=== PATIENT | male | born 1970 | race Caucasian/White ===

== ENCOUNTER 2025-01-10 22:20 | Emergency (ER) | payer BC, OTHER ==
[~2025-01-10] VITALS: Ht 177.8 cm; Wt 91.2 kg
[~2025-01-10 22:20] MED LIST: ALEVE220 M1 PO; METOPROLOL SUCC50 MG PO; ZEGERID 20 MG1 EACH PO; ZYRTEC10 MG PO
[2025-01-10 23:01] LABS: BASOPHILS # (AUTO) 0.1 (0.0-0.1); EOSINOPHILS # (AUTO) 0.2 (0.0-0.4); EOSINOPHILS % 1.9 % (0.0-6.0); HEMATOCRIT 46.6 % (38.2-49.6); HEMOGLOBIN 14.8 g/dL (14.0-18.0); LYMPHOCYTES # (AUTO) 1.7 (1.0-3.2); LYMPHOCYTES % 18.7 % (18.0-39.1); MEAN CORPUSCULAR HEMOGLOBIN 26.7 pg (28-32); MEAN CORPUSCULAR HGB CONC 31.8 g/dL (31-35); MONOCYTES # (AUTO) 0.9 (0.2-0.8); MONOCYTES % 10.3 % (4.4-11.3); NEUTROPHILS % 67.6 % (38.7-80.0); PLATELET COUNT 312 x10e3/uL (140-360); RED BLOOD COUNT 5.55 x10e6/uL (4.3-5.7); RED CELL DISTRIBUTION WIDTH 13.6 % (11.7-14.4); WHITE BLOOD COUNT 8.87 x10e3/uL (4.8-10.8)
[2025-01-10 23:15] VITALS: TEMP 98.6
[2025-01-10 23:24] LABS: ALBUMIN 4.1 g/dL (3.5-5.0); ALBUMIN/GLOBULIN RATIO 1.3 (0.8-2.0); ANION GAP 17.7 mmol/L (8-16); BILIRUBIN,TOTAL 0.6 mg/dL (0.2-1.2); CALCIUM 9.7 mg/dL (8.4-10.2); CREATININE, SERUM 1.7 mg/dL (0.72-1.25); POTASSIUM 4.7 mmol/L (3.5-5.1); TOTAL PROTEIN 7.2 g/dL (6.5-8.1)
[2025-01-10 23:30] LABS: TROPONIN I 0.022 ng/mL (0-0.300)
[2025-01-10 23:33] LABS: INFLUENZA A AG NEGATIVE (NEGATIVE); INFLUENZA B AG NEGATIVE (NEGATIVE)
[2025-01-10 23:34] LABS: CORONAVIRUS COVID-19 AG NEGATIVE (NEGATIVE)
[2025-01-11] MEDS: SODIUM CHLORIDE 0.9% 1000ML 1,000 ML IV STA ×2 (00:04)
[2025-01-11 00:30] VITALS: PULSE 78; RESP 18
[2025-01-11 01:49] LABS: ALBUMIN 3.5 g/dL (3.5-5.0); ALBUMIN/GLOBULIN RATIO 1.5 (0.8-2.0); ANION GAP 15.7 mmol/L (8-16); BILIRUBIN,TOTAL 0.5 mg/dL (0.2-1.2); CALCIUM 8.3 mg/dL (8.4-10.2); CREATININE, SERUM 1.37 mg/dL (0.72-1.25); POTASSIUM 3.7 mmol/L (3.5-5.1); TOTAL PROTEIN 5.9 g/dL (6.5-8.1)
[2025-01-11 01:55] LABS: TROPONIN I 0.009 ng/mL (0-0.300)
[2025-01-11 03:12] VITALS: BP 158/74; PULSE 68; RESP 18; TEMP 98.2; O2SAT 98
== END 2025-01-11 02:35 | disposition home or self-care (01) ==
LOC: ER 22:25
DX: R53.1 Weakness (principal); D21.9 Benign neoplasm of connective and other soft tissue, unspecified; R53.81 Other malaise; R53.83 Other fatigue; Z11.52 Encounter for screening for COVID-19
CPT/HCPCS: 36415; 80053; 82550; 83690; 83880; 84484; 85025; 87428; 93005; 99283; J7030 ×2